=== PATIENT | female | born 1975 ===

== ENCOUNTER 2016-07-13 17:21 | Emergency (ER) | payer MEDICAID, OTHER ==
[2016-07-13 17:21] VITALS: BMI 29.2
[2016-07-13 18:14] VITALS: BP 119/77; PULSE 88; RESP 16; TEMP 98.2; O2SAT 99
[2016-07-13] MEDS ORDERED: Oxycodone/Acetaminophen 5/325 mg Tab PO STA (19:27)
--- NOTE | 2016-07-13 19:34 | ED PDOC ---
HPI: Back Time Seen by Provider: 07/13/16 19:21 Chief Complaint (Nursing): Back Pain Chief Complaint (Provider): Low back pain x 10 days History Per: Patient History/Exam Limitations: no limitations Onset/Duration Of Symptoms: Days Current Symptoms Are (Timing): Still Present Full Body Front + Back: 1 - Pain Additional Complaint(s): PT states she has has this pain in the past. She was given zanaflex which she states helped in the past. She was given a new rx by her PMD but states it is not helping this time. PT states she has history of herniated discs. No bladder or bowel incontinence. No numbness/tingling. No fever/chills. Past Medical History Reviewed: Historical Data, Nursing Documentation, Vital Signs Vital Signs: Last Vital Signs Temp 98.2 F 07/13/16 18:11 Pulse 88 07/13/16 18:11 Resp 16 07/13/16 18:11 BP 119/77 07/13/16 18:11 Pulse Ox 99 07/13/16 18:11 - Medical History PMH: Anemia, Back Problems - Surgical History Surgical History: No Surg Hx - Family History Family History: States: Unknown Family Hx - Living Arrangements Living Arrangements: With Family - Social History Current smoker - smoking cessation education provided: No - Immunization History Hx Tetanus Toxoid Vaccination: Yes Hx Influenza Vaccination: Yes Hx Pneumococcal Vaccination: No - Home Medications Home Medications: Ambulatory Orders Medication Instructions Recorded Calcium Carbonate [Tums Regular 500 mg PO DAILY 05/06/13 Strength] Iron [Ferrous Sulfate] 27 mg PO DAILY 05/06/13 Ondansetron ODT [Zofran ODT] 4 mg PO Q6H PRN #16 odt 06/16/15 traMADol [Ultram] 50 mg PO Q6 #16 tab 06/16/15 Atropine/Diphenoxylate [Lonox 1 tab PO TID PRN #20 tab 07/03/16 0.025 MG-2.5 MG] Dicyclomine [Bentyl] 20 mg PO QID PRN #20 tab 07/03/16 Nitrofurantoin Macrocrystals 1 cap PO BID #14 cap 07/03/16 [Macrobid] Phenazopyridine HCl [Pyridium] 200 mg PO BID #6 tablet 07/03/16 oxyCODONE/Acetaminophen [Percocet 1 ea PO Q6H PRN #10 tab 07/13/16 5/325 mg Tab] - Allergies Allergies/Adverse Reactions: Allergies Allergy/AdvReac Type Severity Reaction Status Date / Time No Known Allergies Allergy Verified 07/13/16 18:11 Review of Systems ROS Statement: Except As Marked, All Systems Reviewed And Found Negative Musculoskeletal: Positive for: Back Pain Physical Exam - Reviewed Nursing Documentation Reviewed: Yes Vital Signs Reviewed: Yes - Physical Exam Appears: Positive for: Well, Non-toxic, No Acute Distress Head Exam: Positive for: ATRAUMATIC, NORMAL INSPECTION, NORMOCEPHALIC Skin: Positive for: Normal Color, Warm, DRY Eye Exam: Positive for: Normal appearance ENT: Positive for: Normal ENT Inspection Neck: Positive for: Normal, Painless ROM Cardiovascular/Chest: Positive for: Regular Rate, Rhythm Respiratory: Positive for: Normal Breath Sounds. Negative for: Accessory Muscle Use, Respiratory Distress Back: Positive for: Normal Inspection Extremity: Positive for: Normal ROM. Negative for: Tenderness Neurologic/Psych: Positive for: Alert, Oriented - ECG O2 Sat by Pulse Oximetry: 99 Pulse Ox Interpretation: Normal Medical Decision Making Medical Decision Making: Pt reports feeling better on re-evaluation at 2044. Disposition - Clinical Impression Clinical Impression: Back pain - Patient ED Disposition Is Patient to be Admitted: No - Disposition Referrals: Demetri Artis MD [Staff Provider] - Disposition: Routine/Home Disposition Time: 20:47 Condition: GOOD Prescriptions: oxyCODONE/Acetaminophen [Percocet 5/325 mg Tab] 1 ea PO Q6H PRN #10 tab PRN Reason: Pain, Severe (8-10) Instructions: Back Pain (ED)
[2016-07-13] MEDS ORDERED: Oxycodone/Acetaminophen 5/325 mg Tab ONE (19:59)
== END 2016-07-13 20:55 | disposition home or self-care (01) ==
LOC: H.ER 17:21
DX: M54.5 Low back pain (principal)